=== PATIENT | female | born 1975 | race Caucasian/White ===

== ENCOUNTER 2024-04-22 14:35 | Emergency (ER) | payer MEDICARE, MEDICAID ==
[~2024-04-22] VITALS: Ht 170.2 cm; Wt 72.2 kg
[2024-04-22 14:54] VITALS: TEMP 97.4
[2024-04-22] MEDS ORDERED: ONDA-245 (15:10)
[2024-04-22] MEDS ORDERED: CLON0.2T (15:10)
[2024-04-22] MEDS ORDERED: ROPI2TAB53 (15:10)
[2024-04-22] MEDS ORDERED: NALO4SPR (15:10)
[2024-04-22] MEDS ORDERED: DULO60CA65 (15:10)
[2024-04-22] MEDS ORDERED: LEVO50TA8 (15:10)
[2024-04-22] MEDS ORDERED: LETR2.5T7 (15:10)
[2024-04-22] MEDS ORDERED: PALB125T (15:10)
[2024-04-22 15:38] LABS: BASOPHILS # (AUTO) 0.1 X10'3 (0-0.2); BASOPHILS % (AUTO) 1.4 % (0-1); EOSINOPHILS % (AUTO) 0.7 % (0-6); HEMATOCRIT 30.6 % (35.0-45.0); HEMOGLOBIN 10.5 g/dl (12.0-16.0); LYMPHOCYTES # (AUTO) 0.7 X10'3 (1.1-4.8); LYMPHOCYTES % (AUTO) 14.5 % (21-51); MEAN CORPUSCULAR HEMOGLOBIN 35.5 PG (27.0-31.0); MEAN CORPUSCULAR HGB CONC 34.4 g/dL (33.0-36.5); MEAN CORPUSCULAR VOLUME 103.1 FL (78-98); MEAN PLATELET VOLUME 7.2 FL (7.4-10.4); MONOCYTES # (AUTO) 0.4 X10'3 (0-0.9); MONOCYTES % (AUTO) 8.8 % (2-12); NEUTROPHILS # (AUTO) 3.5 X10'3 (1.8-7.7); NEUTROPHILS % (AUTO) 74.6 % (42-75); PLATELET COUNT 294 X10'3 (140-440); RED BLOOD COUNT 2.97 X10'6 (4.20-5.60); WHITE BLOOD COUNT 4.6 X10'3 (4.5-11.0)
[2024-04-22 15:47] LABS: ALANINE AMINOTRANSFERASE 17 U/L (12-78); ALBUMIN 2.8 G/DL (3.4-5.0); ALBUMIN/GLOBULIN RATIO 0.6 (1.1-1.5); ALKALINE PHOSPHATASE 159 IU/L (46-116); ANION GAP 8 (8-16); ASPARTATE AMINO TRANSFERASE 7 U/L (10-37); BILIRUBIN,TOTAL 0.3 MG/DL (0.1-1.0); BLOOD UREA NITROGEN 23 MG/DL (7-18); BUN/CREATININE RATIO 34.8 (10.0-20.0); CALCIUM 9.5 MG/DL (8.5-10.1); CHLORIDE 95 MMOL/L (99-107); CREATININE 0.66 MG/DL (0.40-0.90); GLUCOSE 373 MG/DL (70-104); LIPASE 47 U/L (16-77); SODIUM 130 MMOL/L (135-145); TOTAL PROTEIN 7.6 G/DL (6.4-8.2); eCRCL 100 ML/MIN; eGFR > 90 ML/MIN
[2024-04-22 15:47] LABS: URINE HCG NEGATIVE (NEG)
[2024-04-22] MEDS: ketorolac trometh 30MG/ML vial 30 MG/ML VIAL IV ONE (15:52)
[2024-04-22 15:53] LABS: BILIRUBIN,URINE NEGATIVE (Neg); CLARITY,URINE CLEAR (Clear); COLOR,URINE YELLOW (Yellow); GLUCOSE, URINE >=1000 mg/dl (Neg); KETONES,URINE NEGATIVE (Neg); LEUKOCYTE ESTERASE ,URINE NEGATIVE (Neg); NITRITES, URINE NEGATIVE (Neg); OCCULT BLOOD,URINE TRACE-INTACT (Neg); PROTEIN,URINE NEGATIVE (Neg); UROBILINOGEN,URINE 0.2 E.U/dL (0.2-1.0)
[2024-04-22 16:00] LABS: BACTERIA,URINE NONE SEEN /HPF (Neg); MUCUS STRANDS FEW /LPF (Neg); RBC,URINE 0-2 /HPF (0-2); SQUAMOUS EPITHELIAL CELL,UR FEW /LPF (FEW); UA COLLECTION TYPE NON-SPECIFIED; WBC,URINE 0-4 /HPF (0-4)
[2024-04-22 16:05] VITALS: BP 118/78; PULSE 102; RESP 17; O2SAT 99
[2024-04-22] MEDS: normal saline 1000ml 1,000 ML IV ONE (16:20)
== END 2024-04-22 17:15 | disposition left against medical advice (07) ==
LOC: ER 14:35
DX: R73.9 Hyperglycemia, unspecified (principal); G89.29 Other chronic pain; M54.9 Dorsalgia, unspecified; Z88.1 Allergy status to other antibiotic agents; Z79.899 Other long term (current) drug therapy
CPT/HCPCS: 71045; 80053; 81001; 81025; 83690; 85025; 87502; 87503; 93005; 96374; 99285; A4615; J1885; J7030

== ENCOUNTER 2024-04-23 13:06 | Emergency (ER) | payer MEDICARE, MEDICAID ==
[~2024-04-23] VITALS: Ht 170.2 cm; Wt 75.1 kg
[~2024-04-23 13:06] MED LIST: CLON0.2T; DULO60CA65; LETR2.5T7; LEVO50TA8; NALO4SPR; ONDA-245; PALB125T; ROPI2TAB53
[2024-04-23 13:20] VITALS: TEMP 98.2
[2024-04-23] MEDS ORDERED: iohexol 300mg/ml 100ml inj. ONE (14:29)
[2024-04-23 14:36] LABS: ABG BASE EXCESS 1.2 mmol/L (-2.0-3.0); ABG HCO3 23.4 mmol/L (21.0-28.0); ABG OXYGEN SATURATION 96.6 % (94.0-98.0); ABG PCO2 (T) 29.1 mmHg (32.0-45.0); ABG PH (T) 7.523 (7.350-7.450); ABG PO2 (T) 87.9 mmHg (83.0-108.0); ALLEN'S TEST POSITIVE; FCOHb 0.3 % (0.5-1.5); FHHb 3.4 % (0.0-5.0); FMetHb 0.3 % (0.0-1.5); MODE ROOM AIR; TOTAL HEMOGLOBIN 10.9 G/dl (12.0-16.0)
[2024-04-23] MEDS: normal saline 1000ml 1,000 ML IV ONE ×3 (15:04→21:15)
[2024-04-23 15:14] LABS: BILIRUBIN,URINE NEGATIVE (Neg); CLARITY,URINE CLEAR (Clear); COLOR,URINE YELLOW (Yellow); GLUCOSE, URINE >=1000 mg/dl (Neg); KETONES,URINE NEGATIVE (Neg); LEUKOCYTE ESTERASE ,URINE NEGATIVE (Neg); NITRITES, URINE NEGATIVE (Neg); OCCULT BLOOD,URINE SMALL (Neg); PROTEIN,URINE NEGATIVE (Neg); UROBILINOGEN,URINE 0.2 E.U/dL (0.2-1.0)
[2024-04-23 15:22] LABS: ALANINE AMINOTRANSFERASE 11 U/L (12-78); ALBUMIN 2.6 G/DL (3.4-5.0); ALBUMIN/GLOBULIN RATIO 0.5 (1.1-1.5); ALKALINE PHOSPHATASE 156 IU/L (46-116); ANION GAP 8 (8-16); ASPARTATE AMINO TRANSFERASE 15 U/L (10-37); BILIRUBIN,TOTAL 0.2 MG/DL (0.1-1.0); BLOOD UREA NITROGEN 19 MG/DL (7-18); BUN/CREATININE RATIO 27.5 (10.0-20.0); CALCIUM 9.1 MG/DL (8.5-10.1); CHLORIDE 97 MMOL/L (99-107); CREATININE 0.69 MG/DL (0.40-0.90); POTASSIUM 4.3 MMOL/L (3.5-5.1); SODIUM 130 MMOL/L (135-145); TOTAL CARBON DIOXIDE 24.7 MMOL/L (24-32); TOTAL PROTEIN 7.6 G/DL (6.4-8.2); eCRCL 96 ML/MIN; eGFR 90 ML/MIN
[2024-04-23 15:28] LABS: UA COLLECTION TYPE VOIDED
[2024-04-23 15:38] LABS: BACTERIA,URINE FEW /HPF (Neg); SQUAMOUS EPITHELIAL CELL,UR FEW /LPF (FEW)
[2024-04-23 15:50] LABS: GLUCOSE 435 MG/DL (70-104)
[2024-04-23 15:51] LABS: BASOPHILS # (AUTO) 0.1 X10'3 (0-0.2); BASOPHILS % (AUTO) 1.3 % (0-1); EOSINOPHILS % (AUTO) 0.7 % (0-6); HEMATOCRIT 28.1 % (35.0-45.0); HEMOGLOBIN 9.4 g/dl (12.0-16.0); LYMPHOCYTES # (AUTO) 0.4 X10'3 (1.1-4.8); LYMPHOCYTES % (AUTO) 10.6 % (21-51); MEAN CORPUSCULAR HEMOGLOBIN 35.2 PG (27.0-31.0); MEAN CORPUSCULAR HGB CONC 33.4 g/dL (33.0-36.5); MEAN CORPUSCULAR VOLUME 105.4 FL (78-98); MONOCYTES # (AUTO) 0.3 X10'3 (0-0.9); NEUTROPHILS # (AUTO) 3.3 X10'3 (1.8-7.7); NEUTROPHILS % (AUTO) 79.4 % (42-75); PLATELET COUNT 276 X10'3 (140-440); RED BLOOD COUNT 2.67 X10'6 (4.20-5.60); RED CELL DISTRIBUTION WIDTH 18.4 % (11.5-14.5); WHITE BLOOD COUNT 4.2 X10'3 (4.5-11.0)
[2024-04-23] MEDS: LORazepam 2 mg/ml vial IV ONE (16:19)
[2024-04-23] MEDS: HYDROmorphone 1 mg/ml syringe IV ONE (16:19)
[2024-04-23] MEDS: piperacillin/tazo 3.375gm/50ml 50 ML IV SCH (16:20)
[2024-04-23 19:59] LABS: C-REACTIVE PROTEIN 8.75 MG/DL (0.0-0.5)
[2024-04-23] MEDS: VANCOMYCIN 1.75GM/WATER FOR INJ (PEG) 350 ML IVPB IV ONE (20:15)
[2024-04-23] MEDS: ondansetron/PF 4mg/2ml inj IV PRN (21:30)
[2024-04-23] MEDS: HYDROmorphone 1 mg/ml syringe IV PRN (21:31)
[2024-04-24 05:00] VITALS: BP 114/59; PULSE 99; RESP 16; O2SAT 98
== END 2024-04-24 05:37 | disposition short-term general hospital (02) ==
LOC: ER 13:07
DX: Z88.0 Allergy status to penicillin (principal); Z45.2 Encounter for adjustment and management of vascular access device; Z88.8 Allergy status to other drugs, medicaments and biological substances; Z96.641 Presence of right artificial hip joint; G89.29 Other chronic pain; K65.1 Peritoneal abscess; N73.9 Female pelvic inflammatory disease, unspecified; E11.65 Type 2 diabetes mellitus with hyperglycemia
CPT/HCPCS: 36415; 36600; 74177; 80053; 81001; 82803; 83605; 85018; 85025; 85651; 86140; 87088; 96361; 96365; 96366; 96368; 96375; 96376; 99291; J1171; J2060; J2405; J2543; J3372; J7030; Q9967

== ENCOUNTER 2024-06-07 08:20 | Emergency (ER) | payer MEDICARE, MEDICAID ==
[~2024-06-07] VITALS: Ht 170.2 cm; Wt 84.5 kg
[2024-06-07 08:24] VITALS: TEMP 98.2
[2024-06-07] MEDS: methylnaltrexone br 12mg/0.6ml inj***SubQ only SQ ONE (10:39)
[2024-06-07 12:40] LABS: HCG SERUM QL NEGATIVE
[2024-06-07] MEDS ORDERED: SODI354S PO (13:04)
[2024-06-07] MEDS ORDERED: DOCU-148 PO (13:04)
[2024-06-07 14:13] VITALS: BP 124/71; PULSE 105; RESP 14; O2SAT 95
== END 2024-06-07 14:12 | disposition home or self-care (01) ==
LOC: ER 08:21
DX: K56.41 Fecal impaction (principal); D72.829 Elevated white blood cell count, unspecified; R73.9 Hyperglycemia, unspecified; Z87.891 Personal history of nicotine dependence; Z88.0 Allergy status to penicillin; Z88.8 Allergy status to other drugs, medicaments and biological substances
CPT/HCPCS: 36415; 84703; 96372; 99284; J2212